=== PATIENT | female | born 1990 | race Caucasian/White ===

== ENCOUNTER 2021-02-03 13:55 | Outpatient (CLI) | payer OTHER ==
[~2021-02-03 13:55] MED LIST: IBUPROFEN600 MG PO
== END 2021-02-03 15:39 | disposition home or self-care (01) ==
LOC: GENOP 13:55
DX: O26.892 Other specified pregnancy related conditions, second trimester (principal); N89.8 Other specified noninflammatory disorders of vagina; Z3A.23 23 weeks gestation of pregnancy
CPT/HCPCS: G0463

== ENCOUNTER → 2021-02-11 | Outpatient (CLI) | payer OTHER ==
[~2021-02-11] MED LIST changes: +NIFEDIPINE PO
== END ==
LOC: GENOP 09:32
DX: O34.32 Maternal care for cervical incompetence, second trimester (principal); O46.92 Antepartum hemorrhage, unspecified, second trimester; O24.112 Pre-existing type 2 diabetes mellitus, in pregnancy, second trimester; E11.9 Type 2 diabetes mellitus without complications; O16.2 Unspecified maternal hypertension, second trimester; O99.282 Endocrine, nutritional and metabolic diseases complicating pregnancy, second trimester; E28.2 Polycystic ovarian syndrome; O99.342 Other mental disorders complicating pregnancy, second trimester; F41.9 Anxiety disorder, unspecified; F32.9 Major depressive disorder, single episode, unspecified; O99.332 Smoking (tobacco) complicating pregnancy, second trimester; F17.210 Nicotine dependence, cigarettes, uncomplicated; O99.842 Bariatric surgery status complicating pregnancy, second trimester; Z79.84 Long term (current) use of oral hypoglycemic drugs; Z3A.24 24 weeks gestation of pregnancy
CPT/HCPCS: G0463

== ENCOUNTER 2021-02-17 05:58 | Outpatient (CLI) | payer OTHER ==
[~2021-02-17 05:58] MED LIST changes: -NIFEDIPINE PO
[2021-02-17] MEDS ORDERED: NIFEDIPINE PO (12:20)
== END 2021-02-17 12:55 | disposition home or self-care (01) ==
LOC: GENOP 05:58
DX: O46.92 Antepartum hemorrhage, unspecified, second trimester (principal); O23.42 Unspecified infection of urinary tract in pregnancy, second trimester; O34.32 Maternal care for cervical incompetence, second trimester; O24.112 Pre-existing type 2 diabetes mellitus, in pregnancy, second trimester; E11.9 Type 2 diabetes mellitus without complications; O16.2 Unspecified maternal hypertension, second trimester; O99.842 Bariatric surgery status complicating pregnancy, second trimester; O99.342 Other mental disorders complicating pregnancy, second trimester; F32.9 Major depressive disorder, single episode, unspecified; F41.9 Anxiety disorder, unspecified; O99.282 Endocrine, nutritional and metabolic diseases complicating pregnancy, second trimester; E28.2 Polycystic ovarian syndrome; O99.332 Smoking (tobacco) complicating pregnancy, second trimester; F17.210 Nicotine dependence, cigarettes, uncomplicated; Z3A.25 25 weeks gestation of pregnancy
CPT/HCPCS: 81001; 82962; 96360; 96361; 96367; J0696

== ENCOUNTER 2021-04-11 15:43 | Outpatient (CLI) | payer OTHER ==
[~2021-04-11 15:43] MED LIST changes: +NIFEDIPINE PO
== END 2021-04-11 19:50 | disposition short-term general hospital (02) ==
LOC: GENOP 15:43
DX: O42.913 Preterm premature rupture of membranes, unspecified as to length of time between rupture and onset of labor, third trimester (principal); O24.913 Unspecified diabetes mellitus in pregnancy, third trimester; O34.33 Maternal care for cervical incompetence, third trimester; O99.283 Endocrine, nutritional and metabolic diseases complicating pregnancy, third trimester; E28.2 Polycystic ovarian syndrome; O99.343 Other mental disorders complicating pregnancy, third trimester; F41.9 Anxiety disorder, unspecified; F32.A Depression, unspecified; Z3A.33 33 weeks gestation of pregnancy; Z79.4 Long term (current) use of insulin; Z20.822 Contact with and (suspected) exposure to COVID-19
CPT/HCPCS: 82962; J0290; J0610; J0702; J3475; U0002